=== PATIENT | female | born 1995 ===

== ENCOUNTER 2024-12-26 14:46 | Day surgery (SDC) | payer OTHER, SELFPAY ==
[2024-12-26] VITALS (7 sets, daily range): BP systolic 99–117; BP diastolic 69–75; BMI 29.1
[2024-12-26] MEDS: NORMOSOL-R/PLASMALYTE-A 1000 IV (14:30)
[2024-12-26] MEDS: VIBRAMYCIN 260 MG IV (14:50)
[2024-12-26 14:54] LABS: Hematocrit 34.9 % (37.0-47.0); Hemoglobin 12.1 g/dL (12.0-16.0); Mean Corp Hgb Conc. 34.7 g/dL (33.0-37.0); Mean Corpuscular Volume 81.9 fL (81.0-99.0); Platelet Count 256 10^3/uL (130-400); Red Cell Dist. Width 12.1 % (11.5-14.5)
[2024-12-26] MEDS: TYLENOL 1000 MG PO (14:56)
[2024-12-26 15:10] LABS: INR 1.01; PT 13.6 Sec (11.4-14.6)
[2024-12-26 15:11] LABS: APTT 34.2 Sec (23.4-35.0)
--- NOTE | 2024-12-26 16:03 | OR.RPT ---
Operative Report
Operative Report
Patient name: Sayra Zaragoza
: 1995
DOS: 12/26/2024
Surgeon: Dr. Carmen Landers
Preop diagnosis: Missed
Postop diagnosis: Missed
Procedure: Dilation and Evacuation
Anesthesia: Total Intravenous Anesthesia
QBL: 10cc
Operative findings: Normal appearing external female genitalia. Anteverted 6w size uterus on bimanual exam.
Complications: None apparent
Counts: Correct x2
Indication: Missed
Description of Procedure:
Patient was taken to the operating room where a time out was performed to confirm correct patietn and correct procedure. TIVA was administered and the patient was positioned on the OR table in the dorsal lithotomy position. A bimanual exam was
performed and the uterus was noted to be anteverted, 6w in size, normal consistency with no palpable adnexal masses or fullness. The patient was prepped and draped in the usual sterile fashion.
Operative technique:
A straight catheter was introduced into the bladder, which was drained of 100cc of clear yellow urine. A bivalved retractor was inserted into the vagina to visualize the anterior lip of the cervix, which was then grasped with a single toothed
tenaculum. The cervix was serially dilated for introduction of a 7mm curved suction curette.
The 7mm curved suction curette was introduced into the uterine cavity to the fundus. Suction was applied and curetting was performed by rotating curette 360 degrees as it was withdrawn from the uterus. Suction was released prior to reaching the
cervical os. This was done for a total of 4 passes with tissue obtained on each pass. Products of conception was obtained and sent for pathology.
The single toothed tenaculum was removed from the anterior lip of the cervix. Slow ooze was noted and silver nitrate was placed on the tenaculum puncture sites with excellent hemostasis. Retractors were then removed from the vagina.
At the conclusion of the procedure, all sponge and instrument counts were noted to be correct x2. Patient tolerated the procedure well and was transferred to PACU in stable condition prior to discharge with follow up in 2 weeks.
== END 2024-12-26 17:18 | disposition home or self-care (01) ==
LOC: SDS 14:46
PROVIDERS: ATTENDING PHYSICIAN Obstetrics & Gynecology
DX: O02.1 Missed abortion (principal); N85.4 Malposition of uterus; Z3A.01 Less than 8 weeks gestation of pregnancy
CPT/HCPCS: 59820; 85027; 85610; 85730; 88305